=== PATIENT | male | born 1930 | race Caucasian/White ===

== ENCOUNTER 2017-01-19 11:03 | Emergency (ER) | payer MEDICARE ==
[~2017-01-19] VITALS: Ht 175.3 cm; Wt 78.0 kg
[~2017-01-19 11:03] MED LIST: FISH300C2 PO; LORA10TA7 PO; PRIL20TA2 PO; SAW160TA OR; TAB-TAB PO; TUSSSUS PO; VITA400C28 PO; Z.0.UNKNOWN; ZITH250T PO; [UNRECOGNIZED DRUG - CODE] XX
[2017-01-19 11:06] VITALS: BP 146/69; PULSE 77; RESP 18; TEMP 98.1; O2SAT 97
[2017-01-19] MEDS ORDERED: SODIUM CHLOR 0.9% 1000 ML INJ 1,000 ML IV SCH (11:20)
--- NOTE | 2017-01-19 11:27 | PD ---
HPI Chief Complaint: Abdominal Pain Time Seen by Provider: 11:24 Travel History International Travel<30 days: No Contact w/Intl Traveler<30days: No Traveled to known affect area: No History of Present Illness HPI 86-year-old elderly male presents to the emergency department for evaluation of lower abdominal pain and bright red blood per the rectum that started this morning at 2:30 AM. He states it woke him from his sleep. He states he has been to the bathroom at least 50 times this morning. He states however, he only has a small amount of bright red blood every time he goes. The patient denies any nausea or vomiting. Patient Denies any chest pain or shortness of breath. Patient states the pain is in his lower abdomen. He does report a history of BPH, hypertension. Patient reports a history of hernia surgery, but no other abdominal surgeries. Patient denies any urinary symptoms. He states he has never had this pain or symptoms before. Patient states he feels fatigued from having to go to the bathroom so much. No syncope. PFSH Past Medical History Arthritis: Yes Asthma: Yes ( A CHILD) Heart Rhythm Problems: No Cancer: No Cardiovascular Problems: No High Cholesterol: No Chest Pain: No Congestive Heart Failure: No COPD: No Cerebrovascular Accident: No Diabetes: No Diminished Hearing: No GERD: Yes (TAKING PRILOSEC) Glaucoma: No Genitourinary: No Headaches: No Hepatitis: No Hiatal Hernia: Yes (PRILOSEC OTC FOR ACID REFLUX) Hypertension: Yes Kidney Stones: No Musculoskeletal: Yes Neurologic: No Reproductive: No Respiratory: No Immunizations Current: Yes Migraines: No Myocardial Infarction: No Renal Failure: No Seizures: No Sleep Apnea: No Thyroid Disease: Yes Ulcer: No Past Surgical History Abdominal Surgery: Yes (APPENDECTOMY) Appendectomy: Yes Cardiac Surgery: No Cholecystectomy: No Ear Surgery: Yes (MASTOIDECTOMY @ AGE 6) Endocrine Surgery: No Eye Surgery: No Genitourinary Surgery: No Gynecologic Surgery: No Oral Surgery: Yes (TONSILLECTOMY) Pacemaker: No Thoracic Surgery: No Other Surgery: Yes (Sinus Surgery, Hernia Surgery) Social History Alcohol Use: Yes (OCCAS COCKTAIL) Tobacco Use: No Substance Use: No Allergies-Medications (Allergen,Severity, Reaction): Coded Allergies: Penicillin (Verified Allergy, Severe, Hives , 01/19/17) Reported Meds & Prescriptions Reported Meds & Active Scripts Active Cipro (Ciprofloxacin HCl) 500 Mg Tab 500 Mg PO BID 10 Days Flagyl (Metronidazole) 500 Mg Tab 500 Mg PO TID 10 Days Reported Flomax (Tamsulosin HCl) 0.4 Mg Cap 0.4 Mg PO HS Aspirin 81 Mg Tabdr 81 Mg PO HS Dutasteride 0.5 Mg Cap 0.5 Mg PO DAILY Amlodipine (Amlodipine Besylate) 5 Mg Tab 5 Mg PO DAILY Omeprazole 20 Mg Tab 20 Mg PO DAILY Claritin (Loratadine) 10 Mg Cap 10 Mg PO DAILY Multivitamin Adults (Multiple Vitamins W/ Minerals) 1 Tab 1 Tab PO DAILY [place] (Serenoa Repens) 450 Mg Cap 450 Mg PO DAILY Vitamin D3 (Cholecalciferol) 2,000 Unit Cap 2,000 Units PO DAILY PRN Review of Systems Except as stated in HPI: all other systems reviewed are Neg Physical Exam Narrative GENERAL: Well-nourished, well-developed elderly male patient, ambulatory. Afebrile. SKIN: Focused skin assessment warm/dry. HEAD: Normocephalic. Atraumatic. EYES: No scleral icterus. No injection or drainage. NECK: Supple, trachea midline. No JVD or lymphadenopathy. CARDIOVASCULAR: Regular rate and rhythm without murmurs, gallops, or rubs. RESPIRATORY: Breath sounds equal bilaterally. No accessory muscle use. Lungs sounds are clear to auscultation. GASTROINTESTINAL: Abdomen soft and nondistended. Patient has mild tenderness to palpation of the epigastric region and moderate to severe tenderness over the left lower and suprapubic region. MUSCULOSKELETAL: No cyanosis, or edema. BACK: Nontender without obvious deformity. No CVA tenderness. RECTAL EXAM: No masses or tenderness. Hemoccult is positive. This exam was done with NATY Downs, at bedside. Data Data Last Documented VS Vital Signs Date Time Temp Pulse Resp B/P Pulse Ox O2 Delivery O2 Flow Rate FiO2 01/19/17 12:45 65 13 153/67 95 Room Air 01/19/17 11:06 98.1 Orders Complete Blood Count With Diff (01/19/17 11:20) Comprehensive Metabolic Panel (01/19/17 11:20) Lipase (01/19/17 11:20) Prothrombin Time / Inr (Pt) (01/19/17 11:20) Act Partial Throm Time (Ptt) (01/19/17 11:20) Urinalysis - C+S If Indicated (01/19/17 11:20) Ct Abd/Pel W Iv Contrast(Rout) (01/19/17 11:20) Iv Access Insert/Monitor (01/19/17 11:20) Ecg Monitoring (01/19/17 11:20) Oximetry (01/19/17 11:20) Ondansetron Inj (Zofran Inj) (01/19/17 11:30) Sodium Chlor 0.9% 1000 Ml Inj (Ns 1000 M (01/19/17 11:20) Sodium Chloride 0.9% Flush (Ns Flush) (01/19/17 11:30) Electrocardiogram (01/19/17 11:20) Type And Screen (01/19/17 11:20) Pantoprazole Inj (Protonix Inj) (01/19/17 11:30) Morphine Inj (Morphine Inj) (01/19/17 11:30) Metronidazole (Flagyl) (01/19/17 13:30) Ciprofloxacin (Cipro) (01/19/17 13:30) Labs Laboratory Tests Test 01/19/17 01/19/17 11:27 12:43 White Blood Count 8.7 TH/MM3 Red Blood Count 4.26 MIL/MM3 Hemoglobin 14.6 GM/DL Hematocrit 42.5 % Mean Corpuscular Volume 99.9 FL Mean Corpuscular Hemoglobin 34.3 PG Mean Corpuscular Hemoglobin 34.3 % Concent Red Cell Distribution Width 13.2 % Platelet Count 209 TH/MM3 Mean Platelet Volume 8.1 FL Neutrophils (%) (Auto) 77.7 % Lymphocytes (%) (Auto) 12.9 % Monocytes (%) (Auto) 6.2 % Eosinophils (%) (Auto) 2.8 % Basophils (%) (Auto) 0.4 % Neutrophils # (Auto) 6.8 TH/MM3 Lymphocytes # (Auto) 1.1 TH/MM3 Monocytes # (Auto) 0.5 TH/MM3 Eosinophils # (Auto) 0.2 TH/MM3 Basophils # (Auto) 0.0 TH/MM3 CBC Comment DIFF FINAL Differential Comment Prothrombin Time 12.0 SEC Prothromb Time International 1.1 RATIO Ratio Activated Partial 28.0 SEC Thromboplast Time Sodium Level 142 MEQ/L Potassium Level 4.0 MEQ/L Chloride Level 110 MEQ/L Carbon Dioxide Level 26.1 MEQ/L Anion Gap 6 MEQ/L Blood Urea Nitrogen 17 MG/DL Creatinine 1.00 MG/DL Estimat Glomerular Filtration 71 ML/MIN Rate Random Glucose 147 MG/DL Calcium Level 8.4 MG/DL Total Bilirubin 0.3 MG/DL Aspartate Amino Transf 18 U/L (AST/SGOT) Alanine Aminotransferase 26 U/L (ALT/SGPT) Alkaline Phosphatase 71 U/L Total Protein 6.7 GM/DL Albumin 3.5 GM/DL Lipase 84 U/L Blood Type O POSITIVE Antibody Screen NEGATIVE Urine Color YELLOW Urine Turbidity CLEAR Urine pH 6.5 Urine Specific [place] 1.040 Urine Protein NEG mg/dL Urine Glucose (UA) NEG mg/dL Urine Ketones NEG mg/dL Urine Occult Blood NEG Urine Nitrite NEG Urine Bilirubin NEG Urine Urobilinogen LESS THAN 2.0 MG/DL Urine Leukocyte Esterase NEG Urine RBC LESS THAN 1 /hpf Urine WBC 2 /hpf Urine Squamous Epithelial <1 /hpf Cells Urine Mucus FEW /lpf Microscopic Urinalysis Comment CULT NOT INDICATED MDM Medical Decision Making Medical Screen Exam Complete: Yes Emergency Medical Condition: Yes Medical Record Reviewed: Yes Interpretation(s) CT abdomen/pelvis - CONCLUSION: 1. Mild diverticulitis descending colon. 2. Evidence for a significant diverticulosis coli in the sigmoid colon. 3. Midline abdominal hernia containing small bowel. Differential Diagnosis Colitis versus lower GI bleed versus diverticulitis versus UTI Narrative Course 86-year-old male presents to the emergency department for evaluation of lower abdominal pain with bright red blood per the rectum since 2:30 this morning. He denies any history of similar symptoms. EKG, CBC, CMP, lipase, PTT, PTT/INR , UA, type and screen are ordered and pending. CT the abdomen/pelvis with IV contrast is ordered and pending. Patient is given1 liter normal saline IV bolus , Protonix 40 mg IV, Zofran 4 mg IV, Morphine 4 mg IV. EKG shows sinus rhythm with right bundle zaida block, heart rate 61. CBC shows no acute abnormality, hemoglobin 14.6, hematocrit 42.5. CMP shows no acute abnormality. Lipase is 84. Coags show no acute abnormality. UA is negative for infection. CT abdomen/pelvis shows mild diverticular diverticulitis descending colon. I discussed the case with the on-call rigger apprentice, Dr. Pineda, who like the patient to be followed up outpatient. He would like the patient be on a liquid diet for 2 days, no solid foods. He would like the patient started on Flagyl and Cipro. He would like to see the patient has office in 1-2 days. However, he does not get better or has any worsening symptoms needs to return to the emergency department. I discussed this with the patient who verbalizes agreement and understanding. Patient is given first dose of Bactrim and Keflex in the emergency department. [facility] Point of Care Internal Pos. & Neg. Controls: Passed Fecal Specimen Occult Blood: Positive Diagnosis Primary Impression: Diverticulitis Qualified Code: K57.93 - Diverticulitis of intestine without perforation or abscess with bleeding, unspecified part of intestinal tract Referrals: Kerrie Pineda MD 1 day Patient Instructions: Diverticulitis (ED), General Instructions Additional Instructions: Take antibiotics as instructed until gone. No alcohol while on Flagyl. Liquid diet for 2 days. No solid foods. Over the counter Tylenol every 4 hours as needed for pain. Follow-up with Dr. Pineda in his office in 1-2 days. Return immediately for any worsening symptoms or if not improving. Med/Other Pt SpecificInfo: Prescription(s) given Scripts Ciprofloxacin (Cipro)500 Mg [id number] Mg PO BID 10 Days Ref 0 Prov:Suzy Luis 01/19/17 Metronidazole (Flagyl)500 Mg [id number] Mg PO TID 10 Days Ref 0 Prov:Suzy Luis 01/19/17 Disposition: 01 DISCHARGE HOME Condition: Stable Suzy Luis Jan 19, 2017 11:27
[2017-01-19] MEDS ORDERED: PANTOPRAZOLE SODIUM 40 MG VIAL IVP ONE (11:30)
[2017-01-19] MEDS ORDERED: SODIUM CHLORIDE 0.9% FLUSH 10 ML FLUSH IV FLUSH PRN (11:30)
[2017-01-19] MEDS ORDERED: ONDANSETRON HCL 4 MG/2 ML VIAL IVP ONE (11:30)
[2017-01-19] MEDS ORDERED: MORPHINE SULFATE 4 MG/ML INJ IV PUSH ONE (11:30)
[2017-01-19 11:33] VITALS: BP 153/67; PULSE 68; RESP 17; O2SAT 95
[2017-01-19] MEDS ORDERED: TAMS5CAP PO (11:33)
[2017-01-19] MEDS ORDERED: ASPI1TAB69 PO (11:33)
[2017-01-19] MEDS ORDERED: AMLO5TAB2 PO (11:33)
[2017-01-19] MEDS ORDERED: CLAR10CA3 PO (11:33)
[2017-01-19] MEDS ORDERED: DUTA1CAP2 PO (11:33)
[2017-01-19] MEDS ORDERED: VITA2000 PO (11:33)
[2017-01-19] MEDS ORDERED: SAW450CA2 PO (11:33)
[2017-01-19] MEDS ORDERED: OMEP20TA PO (11:33)
[2017-01-19] MEDS ORDERED: MULT1TAB84 PO (11:33)
[2017-01-19 11:42] LABS: AUTOMATED NEUTROPHIL # 6.8 TH/MM3 (1.8-7.7); BASOPHIL % 0.4 % (0.0-2.0); EOSINOPHIL # 0.2 TH/MM3 (0-0.4); EOSINOPHIL % 2.8 % (0.0-4.0); HEMATOCRIT 42.5 % (39.0-51.0); HEMO FLAGS DIFF FINAL; LYMPH % 12.9 % (9.0-44.0); LYMPHOCYTE # 1.1 TH/MM3 (1.0-4.8); MEAN CELL VOLUME 99.9 FL (80.0-100.0); MEAN CORPUSCULAR HEMOGLOBIN 34.3 PG (27.0-34.0); MEAN CORPUSCULAR HGB CONC 34.3 % (32.0-36.0); MONO % 6.2 % (0.0-8.0); NEUT % 77.7 % (16.0-70.0); PLATELET COUNT 209 TH/MM3 (150-450); RED BLOOD COUNT 4.26 MIL/MM3 (4.50-5.90); RED CELL DISTRIBUTION WIDTH 13.2 % (11.6-17.2); WHITE BLOOD COUNT 8.7 TH/MM3 (4.0-11.0)
[2017-01-19 11:53] LABS: INTERNATIONAL NORMALIZED RATIO 1.1 RATIO
[2017-01-19 12:05] LABS: ALT (GPT) 26 U/L (12-78); ANION GAP 6 MEQ/L (5-15); AST (GOT) 18 U/L (15-37); BICARBONATE 26.1 MEQ/L (21.0-32.0); BLOOD UREA NITROGEN 17 MG/DL (7-18); CHLORIDE 110 MEQ/L (98-107); GLOMERULAR FILTRATION RATE 71 ML/MIN (>89); SODIUM (NA) 142 MEQ/L (136-145)
[2017-01-19 12:08] LABS: ALKALINE PHOSPHATASE 71 U/L (45-117); TOTAL BILIRUBIN ADULT 0.3 MG/DL (0.2-1.0)
[2017-01-19] MEDS ORDERED: IOHEXOL 350 MG/ML 10 ML VIAL (for RAD DIAG) IV ONE (12:25)
[2017-01-19 12:45] VITALS: BP 153/67; PULSE 65; RESP 13; O2SAT 95
--- NOTE | 2017-01-19 13:00 | RADRPT ---
EXAM DATE/TIME: 01/19/2017 12:25 [facility] COMPARISON: No previous studies available for comparison. INDICATIONS : Abdomen pain; lower pelvic pain, rectal bleeding. IV CONTRAST: 100 cc Omnipaque 350 (iohexol) IV ORAL CONTRAST: No oral contrast ingested. RADIATION DOSE: 9.87 CTDIvol (mGy) MEDICAL HISTORY : Hernia, hiatal. SURGICAL HISTORY : Appendectomy. ENCOUNTER: Initial ACUITY: 1 day PAIN SCALE: 5/10 LOCATION: Bilateral abdomen. TECHNIQUE: Volumetric scanning of the abdomen and pelvis was performed. Using automated exposure control and ad justment of the mA and/or kV according to patient size, radiation dose was kept as low as reasonably achievable to obtain optimal diagnostic quality images. FINDINGS: The lung bases are clear. There is a well-circumscribed 2.6 cm cyst left lobe of the liver. The rem ainder of the liver is unremarkable. There is minimal bowel wall thickening in the antrum of the sto mach in a nonspecific fashion. The spleen, pancreas, adrenal glands and kidneys are unremarkable. There is a midline abdominal hernia containing small bowel. This hernia measures 3.6 cm. The ascending colon is unremarkable. There is bowel wall thickening in the descending colon with mohan y minimal induration in the mid-descending colon associated with diverticula that probably represents a mild diverticulitis. There is no abscess formation. Significant diverticular disease extends concha n into the rectosigmoid. CONCLUSION: 1. Mild diverticulitis descending colon. 2. Evidence for a significant diverticulosis coli in the sigmoid colon. 3. Midline abdominal hernia containing small bowel. Hesham Chowdhury MD FACR on January 19, 2017 at 12:51 Board Certified Radiologist. This report was verified electronically.
[2017-01-19 13:04] LABS: BLOOD, URINE NEG (NEG); COMMENT (UR) CULT NOT INDICATED; CULTURE IF INDICATED CULT NOT INDICATED; GLUCOSE,URINE NEG (NEG); KETONE, URINE NEG (NEG); MUCUS URINE FEW /lpf (OCC); NITRITE,URINE NEG (NEG); PH, URINE 6.5 (5.0-8.5); SQUAMOUS EPITHELIAL CELL URINE <1 /hpf (0-5); URINE COLOR YELLOW (YELLW/STRAW)
--- NOTE | 2017-01-19 13:26 | PD ---
Physical Exam Narrative GENERAL: Well-nourished, well-developed patient. SKIN: Warm and dry. HEAD: Normocephalic and atraumatic. EYES: No injection or drainage. ENT: No nasal drainage noted. NECK: Supple, trachea midline. CARDIOVASCULAR: Regular rate and rhythm RESPIRATORY: no increased effort. No accessory muscle use. NEUROLOGICAL: Awake and alert. moves all extremities. Normal speech. Data Data Last Documented VS Vital Signs Date Time Temp Pulse Resp B/P Pulse Ox O2 Delivery O2 Flow Rate FiO2 01/19/17 12:45 65 13 153/67 95 Room Air 01/19/17 11:06 98.1 Orders Complete Blood Count With Diff (01/19/17 11:20) Comprehensive Metabolic Panel (01/19/17 11:20) Lipase (01/19/17 11:20) Prothrombin Time / Inr (Pt) (01/19/17 11:20) Act Partial Throm Time (Ptt) (01/19/17 11:20) Urinalysis - C+S If Indicated (01/19/17 11:20) Ct Abd/Pel W Iv Contrast(Rout) (01/19/17 11:20) Iv Access Insert/Monitor (01/19/17 11:20) Ecg Monitoring (01/19/17 11:20) Oximetry (01/19/17 11:20) Ondansetron Inj (Zofran Inj) (01/19/17 11:30) Sodium Chlor 0.9% 1000 Ml Inj (Ns 1000 M (01/19/17 11:20) Sodium Chloride 0.9% Flush (Ns Flush) (01/19/17 11:30) Electrocardiogram (01/19/17 11:20) Type And Screen (01/19/17 11:20) Pantoprazole Inj (Protonix Inj) (01/19/17 11:30) Morphine Inj (Morphine Inj) (01/19/17 11:30) Labs Laboratory Tests Test 01/19/17 01/19/17 11:27 12:43 White Blood Count 8.7 TH/MM3 Red Blood Count 4.26 MIL/MM3 Hemoglobin 14.6 GM/DL Hematocrit 42.5 % Mean Corpuscular Volume 99.9 FL Mean Corpuscular Hemoglobin 34.3 PG Mean Corpuscular Hemoglobin 34.3 % Concent Red Cell Distribution Width 13.2 % Platelet Count 209 TH/MM3 Mean Platelet Volume 8.1 FL Neutrophils (%) (Auto) 77.7 % Lymphocytes (%) (Auto) 12.9 % Monocytes (%) (Auto) 6.2 % Eosinophils (%) (Auto) 2.8 % Basophils (%) (Auto) 0.4 % Neutrophils # (Auto) 6.8 TH/MM3 Lymphocytes # (Auto) 1.1 TH/MM3 Monocytes # (Auto) 0.5 TH/MM3 Eosinophils # (Auto) 0.2 TH/MM3 Basophils # (Auto) 0.0 TH/MM3 CBC Comment DIFF FINAL Differential Comment Prothrombin Time 12.0 SEC Prothromb Time International 1.1 RATIO Ratio Activated Partial 28.0 SEC Thromboplast Time Sodium Level 142 MEQ/L Potassium Level 4.0 MEQ/L Chloride Level 110 MEQ/L Carbon Dioxide Level 26.1 MEQ/L Anion Gap 6 MEQ/L Blood Urea Nitrogen 17 MG/DL Creatinine 1.00 MG/DL Estimat Glomerular Filtration 71 ML/MIN Rate Random Glucose 147 MG/DL Calcium Level 8.4 MG/DL Total Bilirubin 0.3 MG/DL Aspartate Amino Transf 18 U/L (AST/SGOT) Alanine Aminotransferase 26 U/L (ALT/SGPT) Alkaline Phosphatase 71 U/L Total Protein 6.7 GM/DL Albumin 3.5 GM/DL Lipase 84 U/L Blood Type O POSITIVE Antibody Screen NEGATIVE Urine Color YELLOW Urine Turbidity CLEAR Urine pH 6.5 Urine Specific [place] 1.040 Urine Protein NEG mg/dL Urine Glucose (UA) NEG mg/dL Urine Ketones NEG mg/dL Urine Occult Blood NEG Urine Nitrite NEG Urine Bilirubin NEG Urine Urobilinogen LESS THAN 2.0 MG/DL Urine Leukocyte Esterase NEG Urine RBC LESS THAN 1 /hpf Urine WBC 2 /hpf Urine Squamous Epithelial <1 /hpf Cells Urine Mucus FEW /lpf Microscopic Urinalysis Comment CULT NOT INDICATED MDM Supervised Visit with LOLITA: Yes Interpretation(s) CBC & BMP Diagram 01/19/17 11:27 CT with mild diverticulitis, diverticula noted Narrative Course I, Dr. carr, have reviewed the advance practice practitioner's documentation and am in agreement, met with the patient face to face, made the diagnosis, and the medical decision making was done by me. *My assessment and Findings: 86-year-old male presents with intermittent rectal bleeding and abdominal pain. Workup shows mild diverticulitis. Patient wanting to go home and stable vitals and hemoglobin. We'll discuss with GI for close outpatient follow-up given age, patient agrees to plan Diagnosis Primary Impression: Diverticulitis Qualified Code: K57.93 - Diverticulitis of intestine without perforation or abscess with bleeding, unspecified part of intestinal tract Vanessa Carr MD Jan 19, 2017 13:26
[2017-01-19] MEDS ORDERED: CIPR-9 PO (13:30)
[2017-01-19] MEDS ORDERED: metroNIDAZOLE 500 MG TAB PO ONE (13:30)
[2017-01-19] MEDS ORDERED: METR-1 PO (13:30)
[2017-01-19] MEDS ORDERED: CIPROFLOXACIN 500 MG TAB PO ONE (13:30)
--- NOTE | 2017-01-20 11:23 | EKG ---
Date Performed: 01/19/2017 Time Performed: 11:38:25 PTAGE: 86 years EKG: Sinus rhythm WITH MARKED RHYTHM IRREGULARITY, POSSIBLE NON-CONDUCTED PAC, SA BLOCK, AV BLOCK, OR SINUS PAUSE RIGH T BUNDLE BRANCH BLOCK INFERIOR MYOCARDIAL INFARCTION ABNORMAL ECG PREVIOUS TRACING : 08/04/2008 13.49 DOCTOR: Devin Smith Interpretating Date/Time 01/20/2017 11:21:06
== END 2017-01-19 14:09 | disposition home or self-care (01) ==
LOC: NEPE 11:03
DX: K57.93 Diverticulitis of intestine, part unspecified, without perforation or abscess with bleeding (principal); K46.9 Unspecified abdominal hernia without obstruction or gangrene; I10 Essential (primary) hypertension
CPT/HCPCS: 74177; 80053; 81001; 83690; 85025; 85610; 85730; 86850; 86900; 86901; 93005; 96361; 96374; 96375; 99284; C9113; J2270; J2405; J7030; Q9967

== ENCOUNTER 2018-02-07 07:21 | Emergency (ER) | payer MEDICARE ==
[~2018-02-07] VITALS: Ht 175.3 cm; Wt 77.0 kg
[~2018-02-07 07:21] MED LIST changes: +AMLO5TAB2 PO; +ASPI1TAB69 PO; +CIPR-9 PO; +CLAR10CA3 PO; +DUTA1CAP2 PO; -FISH300C2 PO; -LORA10TA7 PO; +METR-1 PO; +MULT1TAB84 PO; +OMEP20TA93 PO; -PRIL20TA2 PO; -SAW160TA OR; +SAW450CA2 PO; -TAB-TAB PO; +TAMS5CAP PO; -TUSSSUS PO; +VITA2000 PO; -VITA400C28 PO; -Z.0.UNKNOWN; -ZITH250T PO; -[UNRECOGNIZED DRUG - CODE] XX
[2018-02-07 07:24] VITALS: BP 136/67; PULSE 68; RESP 17; TEMP 97.1; O2SAT 99
[2018-02-07 07:42] VITALS: BP 141/67; PULSE 67; RESP 18; O2SAT 97
[2018-02-07] MEDS ORDERED: ASPI81TA23 PO (07:45)
[2018-02-07] MEDS ORDERED: MULT-65 PO (07:45)
[2018-02-07] MEDS ORDERED: MORPHINE SULFATE 4 MG/ML INJ IV PUSH ONE (07:45)
--- NOTE | 2018-02-07 07:48 | PD ---
HPI Chief Complaint: Abdominal Pain Time Seen by Provider: 07:42 Travel History International Travel<30 days: No Contact w/Intl Traveler<30days: No Traveled to known affect area: No History of Present Illness HPI 87yo M with PMH of diverticulitis presents to the ED with c/o left lower abdominal pain for 3 days. Said he went to urgent care 2 days ago and was prescribed two medications that he has been taking but pain is getting worst. Pain is left lower abdomen and left flank and radiates to left proximal hip when walking. Denies any fever, chest pain, sob, n/v, dysuria, hematuria, testicular pain, diarrhea or blood in stool. Pt has history of hernia and appendectomy. Pt was seen here on 01/19/[address] a/p that showed mild diverticulitis and prescribed antibiotics. PFSH Past Medical History Arthritis: Yes Asthma: Yes Heart Rhythm Problems: No Cancer: No Cardiovascular Problems: No High Cholesterol: No Chest Pain: No Congestive Heart Failure: No COPD: No Cerebrovascular Accident: No Diabetes: No Diminished Hearing: Yes GERD: Yes (TAKING PRILOSEC) Glaucoma: No Genitourinary: No Headaches: No Hepatitis: No Hiatal Hernia: Yes (PRILOSEC OTC FOR ACID REFLUX) Hypertension: Yes Kidney Stones: No Medical other: Yes (DIVERTICULOSIS DIET CONTROLLED) Musculoskeletal: Yes Neurologic: No Reproductive: No Respiratory: No Immunizations Current: Yes Migraines: No Myocardial Infarction: No Renal Failure: No Seizures: No Sleep Apnea: No Thyroid Disease: Yes Ulcer: No Past Surgical History Abdominal Surgery: Yes (APPENDECTOMY) Appendectomy: Yes Cardiac Surgery: No Cholecystectomy: No Ear Surgery: Yes (MASTOIDECTOMY @ AGE 6) Endocrine Surgery: No Eye Surgery: No Genitourinary Surgery: No Gynecologic Surgery: No Oral Surgery: Yes (TONSILLECTOMY) Pacemaker: No Thoracic Surgery: No Other Surgery: Yes (L side hernia repair) Social History Alcohol Use: Yes (daily, 2 vodka every evening) Tobacco Use: No Substance Use: No Allergies-Medications (Allergen,Severity, Reaction): Coded Allergies: penicillin G (Unverified Allergy, Severe, Hives , 02/07/18) Reported Meds & Prescriptions Reported Meds & Active Scripts Active Cipro (Ciprofloxacin HCl) 500 Mg Tab 500 Mg PO BID 10 Days Flagyl (Metronidazole) 500 Mg Tab 500 Mg PO TID 10 Days Reported Aspirin EC (Aspirin) 81 Mg Tabdr 81 Mg PO DAILY Multi-Vitamin Daily (Multiple Vitamin) 1 Tab Tab 1 Tab PO DAILY Flomax (Tamsulosin HCl) 0.4 Mg Cap 0.4 Mg PO HS Dutasteride 0.5 Mg Cap 0.5 Mg PO DAILY Amlodipine (Amlodipine Besylate) 5 Mg Tab 5 Mg PO DAILY Omeprazole 20 Mg Tab 20 Mg PO DAILY Claritin (Loratadine) 10 Mg Cap 10 Mg PO DAILY Saw [place] (Serenoa Repens) 450 Mg Cap 450 Mg PO DAILY Vitamin D3 (Cholecalciferol) 2,000 Unit Cap 2,000 Units PO DAILY PRN Review of Systems Except as stated in HPI: all other systems reviewed are Neg Physical Exam Narrative GENERAL: 87yo M in mild distress. SKIN: Focused skin assessment warm/dry. HEAD: Atraumatic. Normocephalic. CARDIOVASCULAR: Regular rate and rhythm. No murmur appreciated. RESPIRATORY: No accessory muscle use. Clear to auscultation. Breath sounds equal bilaterally. GASTROINTESTINAL: Abdomen soft, +TTP LLQ. +TTP left flank. +Periumbilical hernia, soft, not tender to palpation. No rebound tenderness or guarding. : No testicular ttp. No inguinal ttp. BACK: No CVA tenderness bilaterally. MUSCULOSKELETAL: No ttp left hip but pain in left lower abdomen with movement of left hip. No obvious deformities. No clubbing. No cyanosis. No edema. NEUROLOGICAL: Awake and alert. No obvious cranial nerve deficits. Motor grossly within normal limits. Normal speech. PSYCHIATRIC: Appropriate mood and affect; insight and judgment normal. Data Data Last Documented VS Vital Signs Date Time Temp Pulse Resp B/P (MAP) Pulse Ox O2 Delivery O2 Flow Rate FiO2 02/07/18 07:42 67 18 141/67 (91) 97 Room Air 02/07/18 07:24 97.1 Orders Orders Complete Blood Count With Diff (02/07/18 07:42) Comprehensive Metabolic Panel (02/07/18 07:42) Lipase (02/07/18 07:42) Prothrombin Time / Inr (Pt) (02/07/18 07:42) Act Partial Throm Time (Ptt) (02/07/18 07:42) Urinalysis - C+S If Indicated (02/07/18 07:42) Ct Abd/Pel W Iv Contrast(Rout) (02/07/18 07:42) Morphine Inj (Morphine Inj) (02/07/18 07:45) Iohexol 350 Inj (Omnipaque 350 Inj) (02/07/18 08:49) Labs Laboratory Tests Test 02/07/18 07:53 02/07/18 09:10 White Blood Count 9.3 TH/MM3 Red Blood Count 4.22 MIL/MM3 Hemoglobin 14.5 GM/DL Hematocrit 42.0 % Mean Corpuscular Volume 99.6 FL Mean Corpuscular Hemoglobin 34.2 PG Mean Corpuscular Hemoglobin Concent 34.4 % Red Cell Distribution Width 12.7 % Platelet Count 185 TH/MM3 Mean Platelet Volume 7.9 FL Neutrophils (%) (Auto) 77.0 % Lymphocytes (%) (Auto) 10.9 % Monocytes (%) (Auto) 7.5 % Eosinophils (%) (Auto) 3.9 % Basophils (%) (Auto) 0.7 % Neutrophils # (Auto) 7.1 TH/MM3 Lymphocytes # (Auto) 1.0 TH/MM3 Monocytes # (Auto) 0.7 TH/MM3 Eosinophils # (Auto) 0.4 TH/MM3 Basophils # (Auto) 0.1 TH/MM3 CBC Comment DIFF FINAL Differential Comment Prothrombin Time 11.4 SEC Prothromb Time International Ratio 1.1 RATIO Activated Partial Thromboplast Time 28.5 SEC Blood Urea Nitrogen 17 MG/DL Creatinine 1.02 MG/DL Random Glucose 102 MG/DL Total Protein 7.1 GM/DL Albumin 3.8 GM/DL Calcium Level 8.3 MG/DL Alkaline Phosphatase 60 U/L Aspartate Amino Transf (AST/SGOT) 28 U/L Alanine Aminotransferase (ALT/SGPT) 40 U/L Total Bilirubin 0.8 MG/DL Sodium Level 141 MEQ/L Potassium Level 3.9 MEQ/L Chloride Level 108 MEQ/L Carbon Dioxide Level 25.6 MEQ/L Anion Gap 7 MEQ/L Estimat Glomerular Filtration Rate 69 ML/MIN Lipase 98 U/L Urine Color YELLOW Urine Turbidity CLEAR Urine pH 6.5 Urine Specific [place] 1.030 Urine Protein NEG mg/dL Urine Glucose (UA) NEG mg/dL Urine Ketones NEG mg/dL Urine Occult Blood NEG Urine Nitrite NEG Urine Bilirubin NEG Urine Urobilinogen LESS THAN 2.0 MG/DL Urine Leukocyte Esterase NEG Urine WBC LESS THAN 1 /hpf Urine Squamous Epithelial Cells <1 /hpf Urine Mucus FEW /lpf Microscopic Urinalysis Comment CULT NOT INDICATED MDM Medical Decision Making Medical Screen Exam Complete: Yes Emergency Medical Condition: Yes Differential Diagnosis Acute diverticulitis vs. abscess Narrative Course 87yo M with left lower abdominal pain. Labs reviewed, no leukocytosis. H/H normal. CMP unremarkable. Lipase normal. CT a/p showed mild diverticulitis involving sigmoid colon with no free air or fluid. Pt given morphine 2mg IV for pain. Pt reevaluated at bedside and pain has completely resolved. Pt is well appearing and tolerating PO. I did offer admission for pain and antibiotics but pt refused admission. Since pt only had 4 doses of cipro and metronidazole, will have pt continue the medication and return to the ED if symptoms do not improve or worsen in 1-2 days. Return precautions given. Diagnosis Primary Impression: Diverticulitis Patient Instructions: General Instructions Departure Forms: Tests/Procedures Additional Instructions: Please continue to take the antibiotics that you have and return to the ED if symptoms worsen. Med/Other Pt SpecificInfo: No Change to Meds Disposition: 01 DISCHARGE HOME Condition: Stable Marya Chavez Feb 07, 2018 07:48
[2018-02-07 08:06] LABS: AUTOMATED NEUTROPHIL # 7.1 TH/MM3 (1.8-7.7); BASOPHIL # 0.1 TH/MM3 (0-0.2); BASOPHIL % 0.7 % (0.0-2.0); EOSINOPHIL # 0.4 TH/MM3 (0-0.4); EOSINOPHIL % 3.9 % (0.0-4.0); HEMOGLOBIN 14.5 GM/DL (13.0-17.0); LYMPH % 10.9 % (9.0-44.0); MEAN CELL VOLUME 99.6 FL (80.0-100.0); MEAN CORPUSCULAR HEMOGLOBIN 34.2 PG (27.0-34.0); MEAN CORPUSCULAR HGB CONC 34.4 % (32.0-36.0); MEAN PLATELET VOLUME 7.9 FL (7.0-11.0); MONO % 7.5 % (0.0-8.0); MONOCYTE # 0.7 TH/MM3 (0-0.9); PLATELET COUNT 185 TH/MM3 (150-450); RED BLOOD COUNT 4.22 MIL/MM3 (4.50-5.90); RED CELL DISTRIBUTION WIDTH 12.7 % (11.6-17.2); WHITE BLOOD COUNT 9.3 TH/MM3 (4.0-11.0)
[2018-02-07 08:18] LABS: INTERNATIONAL NORMALIZED RATIO 1.1 RATIO; PROTHROMBIN TIME - PATIENT 11.4 SEC (9.8-11.6)
[2018-02-07 08:27] LABS: ALBUMIN 3.8 GM/DL (3.4-5.0); ALT (GPT) 40 U/L (12-78); AST (GOT) 28 U/L (15-37); BICARBONATE 25.6 MEQ/L (21.0-32.0); BLOOD UREA NITROGEN 17 MG/DL (7-18); CALCIUM 8.3 MG/DL (8.5-10.1); CHLORIDE 108 MEQ/L (98-107); CREATININE 1.02 MG/DL (0.60-1.30); GLOMERULAR FILTRATION RATE 69 ML/MIN (>89); GLUCOSE,RANDOM 102 MG/DL (74-106); SODIUM (NA) 141 MEQ/L (136-145)
[2018-02-07 08:29] LABS: ALKALINE PHOSPHATASE 60 U/L (45-117); TOTAL BILIRUBIN ADULT 0.8 MG/DL (0.2-1.0); TOTAL PROTEIN 7.1 GM/DL (6.4-8.2)
[2018-02-07] MEDS ORDERED: IOHEXOL 350 MG/ML 10 ML VIAL (for RAD DIAG) IVCONTRAST ONE (08:49)
--- NOTE | 2018-02-07 09:03 | RADRPT ---
EXAM DATE/TIME: 02/07/2018 08:39 [place] COMPARISON: CT ABDOMEN & PELVIS W CONTRAST, January 19, 2017, 12:25. INDICATIONS : Abdomen pain. Known diverticulosis and history of diverticulitis. IV CONTRAST: 93 cc Omnipaque 350 (iohexol) IV ORAL CONTRAST: No oral contrast ingested. RADIATION DOSE: 7.09 CTDIvol (mGy) MEDICAL HISTORY : Diverticulitis. Hypertension. Hernia, hiatal. SURGICAL HISTORY : Appendectomy. Left hernia repair. ENCOUNTER: Initial ACUITY: 1 day PAIN SCALE: 5/10 LOCATION: Left lower quadrant TECHNIQUE: Volumetric scanning of the abdomen and pelvis was performed. Using automated exposure control and ad justment of the mA and/or kV according to patient size, radiation dose was kept as low as reasonably achievable to obtain optimal diagnostic quality images. DICOM format image data is available electro nically for review and comparison. FINDINGS: LOWER LUNGS: The visualized lower lungs are clear. LIVER: Homogeneous density with stable cyst in left lobe of the liver. There is mild hepatic steatosis. The gallbladder remains unremarkable. There is no dilation of the biliary tree. No calcified gallstones. SPLEEN: Normal size without lesion. PANCREAS: Within normal limits. KIDNEYS: Normal in size and shape. There is no mass, stone or hydronephrosis. ADRENAL GLANDS: Within normal limits. VASCULAR: There is no aortic aneurysm. BOWEL/MESENTERY: Multiple diverticuli are again noted greatest in the sigmoid colon. There is mild inflammatory change involving a portion of the sigmoid colon best seen on axial image #72 increased density in the adjac ent mesentery. There is no free air or fluid. There is no evidence of obstruction. ABDOMINAL WALL: Within normal limits. RETROPERITONEUM: There is no lymphadenopathy. BLADDER: No wall thickening or mass. REPRODUCTIVE: Within normal limits. INGUINAL: There is no lymphadenopathy or hernia. MUSCULOSKELETAL: Within normal limits for patient age. CONCLUSION: 1. Changes most characteristic of mild diverticulitis involving the sigmoid colon with no free air or fluid. 2. Stable hepatic cysts. 3. Mild hepatic steatosis. 4. Unremarkable gallbladder. Nehemiah Cifuentes MD on February 07, 2018 at 8:56 Board Certified Radiologist. This report was verified electronically.
[2018-02-07 09:43] LABS: BILIRUBIN, URINE NEG (NEG); BLOOD, URINE NEG (NEG); GLUCOSE,URINE NEG (NEG); KETONE, URINE NEG (NEG); MUCUS URINE FEW /lpf (OCC); NITRITE,URINE NEG (NEG); PH, URINE 6.5 (5.0-8.5); SQUAMOUS EPITHELIAL CELL URINE <1 /hpf (0-5); URINE COLOR YELLOW (YELLW/STRAW); URINE LEUKOCYTE ESTERASE NEG (NEG)
== END 2018-02-07 11:41 | disposition home or self-care (01) ==
LOC: NEPC 07:21
DX: K57.32 Diverticulitis of large intestine without perforation or abscess without bleeding (principal); J45.909 Unspecified asthma, uncomplicated; H91.90 Unspecified hearing loss, unspecified ear; K21.9 Gastro-esophageal reflux disease without esophagitis; I10 Essential (primary) hypertension; Z88.0 Allergy status to penicillin
CPT/HCPCS: 74177; 80053; 81001; 83690; 85025; 85610; 85730; 96374; 99284; J2270; Q9967